=== PATIENT | male | born 1970 | race Caucasian/White ===

== ENCOUNTER 2019-02-07 20:02 | Emergency (ER) | payer SELFPAY ==
[2019-02-07 21:02] LABS: ALBUMIN 3.7 g/dL (3.5-5.0)
[2019-02-07 21:03] LABS: BASO # 0.1 (0.02-0.10); CALCIUM 8.6 mg/dL (8.3-10.5); EOS # 0.2 (0.04-0.40); EOS % 2.9 % (0.0-4.0); HEMATOCRIT 42.3 % (42.0-52.0); HEMOGLOBIN 13.3 g/dL (13.5-18.0); LYMPH# 1.7 (1.50-4.00); MEAN CELL VOLUME 88 fl (78-100); MEAN CORPUSCULAR HEMOGLOBIN 28 pg (27-31); MEAN CORPUSCULAR HGB CONC 31 g/dL (33-37); MONO # 0.9 (0.20-0.80); NEU # 4.6 (1.40-6.50); PLATELET COUNT 274 K/mm3 (130-400); RED BLOOD COUNT 4.83 M/mm3 (4.20-5.60); RED CELL DISTRIBUTION WIDTH 14.5 % (11.5-14.5); WHITE BLOOD COUNT 7.5 K/mm3 (4.8-10.8)
[2019-02-07 21:06] LABS: TOTAL BILIRUBIN 0.3 mg/dL (0.2-1.2)
[2019-02-07 23:18] VITALS: BP 134/58
== END 2019-02-07 23:18 | disposition home or self-care (01) ==
LOC: ED 20:02
PROVIDERS: Family Medicine
DX: R07.89 Other chest pain (principal); G40.909 Epilepsy, unspecified, not intractable, without status epilepticus; J45.909 Unspecified asthma, uncomplicated; Z90.49 Acquired absence of other specified parts of digestive tract
CPT/HCPCS: J1885

== ENCOUNTER 2019-02-12 17:02 | Emergency (ER) | payer MEDICARE ==
[~2019-02-12] VITALS: Ht 175.3 cm; Wt 110.9 kg
[2019-02-12 19:00] VITALS: BP 145/92
== END 2019-02-12 19:00 | disposition home or self-care (01) ==
LOC: ED 17:02
DX: R51 Headache (principal); Z90.49 Acquired absence of other specified parts of digestive tract
CPT/HCPCS: J1885

== ENCOUNTER 2019-02-20 10:03 | Emergency (ER) | payer MEDICARE ==
[~2019-02-20] VITALS: Ht 175.3 cm; Wt 110.9 kg
[2019-02-20 10:36] LABS: BASO # 0.1 (0.02-0.10); EOS # 0.3 (0.04-0.40); HEMOGLOBIN 13.6 g/dL (13.5-18.0); LYMPH# 2.2 (1.50-4.00); MEAN CELL VOLUME 87 fl (78-100); MEAN CORPUSCULAR HEMOGLOBIN 28 pg (27-31); MEAN CORPUSCULAR HGB CONC 32 g/dL (33-37); MEAN PLATELET VOLUME 9.6 fl (7.4-10.4); MONO # 0.8 (0.20-0.80); NEU # 4.4 (1.40-6.50); PLATELET COUNT 267 K/mm3 (130-400); RED BLOOD COUNT 4.85 M/mm3 (4.20-5.60); RED CELL DISTRIBUTION WIDTH 14.2 % (11.5-14.5); WHITE BLOOD COUNT 7.7 K/mm3 (4.8-10.8)
[2019-02-20 10:39] LABS: ALBUMIN 3.8 g/dL (3.5-5.0); POTASSIUM 3.9 mmol/L (3.5-5.1); SODIUM 140 mmol/L (136-145)
[2019-02-20 10:40] LABS: CALCIUM 8.5 mg/dL (8.3-10.5)
[2019-02-20 10:41] LABS: GLUCOSE 88 mg/dL (75-110); TOTAL PROTEIN 6.8 g/dL (6.4-8.3)
[2019-02-20 10:47] LABS: AST-SGOT 15 U/L (5-34)
[2019-02-20 10:48] LABS: ALT/SGPT 18 U/L (0-55)
[2019-02-20 10:52] LABS: CARBON DIOXIDE 23 mmol/L (22-29); TOTAL BILIRUBIN 0.4 mg/dL (0.2-1.2)
[2019-02-20 10:56] LABS: TROPONIN-I < 0.03 ng/mL (<0.030)
[2019-02-20 11:46] LABS: URINE APPEARANCE CLEAR; URINE BILIRUBIN NEGATIVE (NEGATIVE); URINE BLOOD TRACE (NEGATIVE); URINE COLOR YELLOW; URINE GLUCOSE NEGATIVE (NEGATIVE); URINE KETONE NEGATIVE (NEGATIVE); URINE LEUKOCYTE ESTERASE NEGATIVE (NEGATIVE); URINE NITRATE NEGATIVE (NEGATIVE); URINE PROTEIN(semi-quant) NEGATIVE (NEGATIVE); URINE UROBILINOGEN NORMAL (NORMAL); URINE WBC 0-1 /hpf (0-3)
[2019-02-20 11:47] LABS: URINE MUCUS PRESENT (NOT PRESENT)
[2019-02-20 12:25] VITALS: BP 140/77
== END 2019-02-20 12:25 | disposition home or self-care (01) ==
LOC: ED 10:03
PROVIDERS: Nurse Practitioner
DX: R07.89 Other chest pain (principal); J45.909 Unspecified asthma, uncomplicated; Z90.49 Acquired absence of other specified parts of digestive tract
CPT/HCPCS: J1885

== ENCOUNTER 2019-03-30 21:00 | Emergency (ER) | payer MEDICARE ==
[~2019-03-30] VITALS: Ht 175.3 cm; Wt 109.1 kg
[2019-03-30 23:30] VITALS: BP 137/86
== END 2019-03-30 23:30 | disposition home or self-care (01) ==
LOC: ED 21:00
DX: S52.134A Nondisplaced fracture of neck of right radius, initial encounter for closed fracture (principal); Z86.69 Personal history of other diseases of the nervous system and sense organs; W18.42XA Slipping, tripping and stumbling without falling due to stepping into hole or opening, initial encounter
CPT/HCPCS: J1885

== ENCOUNTER → 2019-04-07 | Outpatient (CLI) | payer MEDICARE, MEDICAID ==
[2019-03-30 23:30] VITALS: BP 137/86
== END ==
LOC: RAD 12:32
DX: S52.131A Displaced fracture of neck of right radius, initial encounter for closed fracture (principal)

== ENCOUNTER 2019-06-08 20:31 | Emergency (ER) | payer MEDICARE, MEDICAID ==
[~2019-06-08] VITALS: Ht 175.3 cm; Wt 122.5 kg
[2019-06-08] MEDS ORDERED: PREDNISONE20 MG PO (21:59)
[2019-06-08] MEDS ORDERED: RT ALBUTEROL CC18 GM IH (21:59)
[2019-06-08] MEDS ORDERED: MUCINEX DM 60 M1 TER PO (21:59)
[2019-06-08 22:01] VITALS: BP 150/84
== END 2019-06-08 22:04 | disposition home or self-care (01) ==
LOC: ED 20:31
DX: J45.901 Unspecified asthma with (acute) exacerbation (principal); E78.5 Hyperlipidemia, unspecified; M19.90 Unspecified osteoarthritis, unspecified site; I10 Essential (primary) hypertension; Z98.890 Other specified postprocedural states
CPT/HCPCS: J2930

== ENCOUNTER 2019-12-23 23:10 | Emergency (ER) | payer MEDICARE, MEDICAID ==
[~2019-12-23] VITALS: Ht 175.3 cm; Wt 109.1 kg
[~2019-12-23 23:10] MED LIST: MUCINEX DM 60 M1 TER PO; PREDNISONE20 MG PO; PROAIR HFA0.09 MG/AC IH; RT ALBUTEROL CC18 GM IH
[2019-12-23 23:33] LABS: EOS # 0.3 (0.04-0.40); EOS % 3.4 % (0.0-4.0); HEMATOCRIT 45.7 % (42.0-52.0); HEMOGLOBIN 14.4 g/dL (13.5-18.0); LYMPH# 2.4 (1.50-4.00); MEAN CELL VOLUME 87 fl (78-100); MEAN CORPUSCULAR HEMOGLOBIN 27 pg (27-31); MEAN CORPUSCULAR HGB CONC 32 g/dL (33-37); MEAN PLATELET VOLUME 9.5 fl (7.4-10.4); MONO # 1.1 (0.20-0.80); NEU # 5.5 (1.40-6.50); PLATELET COUNT 264 K/mm3 (130-400); RED BLOOD COUNT 5.26 M/mm3 (4.20-5.60); RED CELL DISTRIBUTION WIDTH 14.1 % (11.5-14.5); WHITE BLOOD COUNT 9.4 K/mm3 (4.8-10.8)
[2019-12-23 23:43] LABS: ALBUMIN 3.9 g/dL (3.5-5.0); POTASSIUM 3.9 mmol/L (3.5-5.1); SODIUM 139 mmol/L (136-145)
[2019-12-23 23:44] LABS: CALCIUM 8.4 mg/dL (8.3-10.5)
[2019-12-23 23:45] LABS: GLUCOSE 90 mg/dL (75-110); TOTAL PROTEIN 6.9 g/dL (6.4-8.3)
[2019-12-23 23:46] LABS: CARBON DIOXIDE 22 mmol/L (22-29)
[2019-12-23 23:47] LABS: TOTAL BILIRUBIN 0.3 mg/dL (0.2-1.2)
[2019-12-23 23:51] LABS: AST-SGOT 16 U/L (5-34)
[2019-12-23 23:52] LABS: ALT/SGPT 21 U/L (0-55)
[2019-12-23 23:58] LABS: TROPONIN-I < 0.03 ng/mL (<0.030)
[2019-12-24] MEDS ORDERED: PROAIR HFA0.09 MG/AC IH (03:19)
[2019-12-24 03:37] VITALS: BP 135/74
== END 2019-12-24 03:37 | disposition home or self-care (01) ==
LOC: ED 23:10
PROVIDERS: Nurse Practitioner Family
DX: R07.89 Other chest pain (principal); J45.909 Unspecified asthma, uncomplicated; Z91.14 Patient's other noncompliance with medication regimen
CPT/HCPCS: J1885; J2405; J7030

== ENCOUNTER 2020-03-18 15:45 | Outpatient (RCR) | payer MEDICARE, MEDICAID ==
[2020-03-22] MEDS ORDERED: TRAMADOL 50 MG TAB PO (18:28)
[2020-03-22] MEDS ORDERED: FLUTICASON0.05 MG/AC NS (18:28)
[2020-03-22] MEDS ORDERED: PANTOPRAZOLE SO20 M1 PO (18:28)
[2020-03-22] MEDS ORDERED: FLOVENT DI100 MCG/Ac IH (18:28)
[2020-03-22] MEDS ORDERED: NAPROSYN500 M1 PO (18:39)
== END 2020-03-18 16:15 | disposition still patient (30) ==
LOC: PT 15:45
DX: M54.2 Cervicalgia (principal); G89.29 Other chronic pain

== ENCOUNTER → 2020-05-19 | Outpatient (CLI) | payer MEDICARE, MEDICAID ==
[2020-03-22 18:25] VITALS: BP 166/93
[~2020-05-19] MED LIST changes: +FLOVENT DI100 MCG/Ac IH; +FLUTICASON0.05 MG/AC NS; +NAPROSYN500 M1 PO; +PANTOPRAZOLE SO20 M1 PO; +TRAMADOL 50 MG TAB PO
== END ==
LOC: RAD 14:36
DX: M79.672 Pain in left foot (principal)

== ENCOUNTER 2020-06-08 11:00 | Outpatient (RCR) | payer MEDICARE, MEDICAID ==
[2020-03-22 18:25] VITALS: BP 166/93
== END 2020-06-28 | disposition home or self-care (01) ==
LOC: PT
DX: M72.2 Plantar fascial fibromatosis (principal)

== ENCOUNTER 2020-07-20 23:41 | Emergency (ER) | payer MEDICARE, MEDICAID ==
[2020-07-20] MEDS ORDERED: MELOXICAM15 MG PO (23:53)
[2020-07-21 01:16] VITALS: BP 141/97
== END 2020-07-21 01:16 | disposition home or self-care (01) ==
LOC: ED 23:41
DX: G43.909 Migraine, unspecified, not intractable, without status migrainosus (principal); G89.29 Other chronic pain; J45.909 Unspecified asthma, uncomplicated; Z90.49 Acquired absence of other specified parts of digestive tract; Z79.1 Long term (current) use of non-steroidal anti-inflammatories (NSAID); Z79.51 Long term (current) use of inhaled steroids; Z79.891 Long term (current) use of opiate analgesic
CPT/HCPCS: J1885; J2550

== ENCOUNTER → 2021-02-01 | Outpatient (CLI) | payer MEDICARE, MEDICAID ==
[~2021-02-01] MED LIST changes: +MELOXICAM15 MG PO
[2021-02-01 12:08] LABS: BASO # 0.04 (0.02-0.10); EOS # 0.48 (0.04-0.40); EOS % 6.1 % (0.0-4.0); HEMATOCRIT 47.2 % (42.0-52.0); HEMOGLOBIN 15.1 g/dL (13.5-18.0); LYMPH# 1.74 (1.50-4.00); MEAN CELL VOLUME 86 fl (78-100); MEAN CORPUSCULAR HEMOGLOBIN 28 pg (27-31); MEAN CORPUSCULAR HGB CONC 32 g/dL (33-37); MEAN PLATELET VOLUME 9.1 fl (7.4-10.4); NEU # 4.43 (1.40-6.50); PLATELET COUNT 241 K/mm3 (130-400); RED BLOOD COUNT 5.47 M/mm3 (4.20-5.60); RED CELL DISTRIBUTION WIDTH 13.4 % (11.5-14.5); WHITE BLOOD COUNT 7.8 K/mm3 (4.8-10.8)
[2021-02-01 12:15] LABS: ALBUMIN 3.9 g/dL (3.5-5.0); POTASSIUM 4.2 mmol/L (3.5-5.1)
[2021-02-01 12:16] LABS: CALCIUM 8.8 mg/dL (8.3-10.5)
[2021-02-01 12:17] LABS: TOTAL PROTEIN 7.6 g/dL (6.4-8.3)
[2021-02-01 12:19] LABS: TOTAL BILIRUBIN 0.4 mg/dL (0.2-1.2)
== END ==
LOC: LAB 11:39
PROVIDERS: Family Medicine
DX: Z00.00 Encounter for general adult medical examination without abnormal findings (principal); E78.5 Hyperlipidemia, unspecified; R73.9 Hyperglycemia, unspecified

== ENCOUNTER → 2021-06-10 | Outpatient (CLI) | payer MEDICARE, MEDICAID | LOC: RAD 13:48 | DX: M79.672 Pain in left foot (principal); M54.9 Dorsalgia, unspecified; G89.29 Other chronic pain ==

== ENCOUNTER 2021-11-12 16:41 | Emergency (ER) | payer MEDICARE, MEDICAID ==
[~2021-11-12] VITALS: Ht 175.3 cm; Wt 131.0 kg
[2021-11-12 17:41] VITALS: BP 137/96
[2021-11-12] MEDS ORDERED: CIPRO500 M1 PO (18:36)
== END 2021-11-12 18:31 | disposition home or self-care (01) ==
LOC: ED 16:41
DX: S91.331A Puncture wound without foreign body, right foot, initial encounter (principal); Z23 Encounter for immunization; Z28.310 Unvaccinated for COVID-19; W45.0XXA Nail entering through skin, initial encounter
CPT/HCPCS: 90715

== ENCOUNTER → 2021-12-01 | Outpatient (CLI) | payer MEDICARE, MEDICAID ==
[~2021-12-01] MED LIST changes: +CIPRO500 M1 PO
== END ==
LOC: RAD 13:31
DX: M19.012 Primary osteoarthritis, left shoulder (principal); M75.92 Shoulder lesion, unspecified, left shoulder